=== PATIENT | female | born 1950 | race Asian ===

== ENCOUNTER 2017-02-18 20:45 | Emergency (ER) | payer SELFPAY ==
[2017-02-18] MEDS ORDERED: Acyclovir* 400 MG TAB PO ONE (21:26)
--- NOTE | 2017-02-18 21:32 | UC ---
Skin Complaint HPI - HPI Summary HPI Summary: Patient presents to the with erythematous slightly raised lesional rash to the midback, left side body, left area under the breast with aching and burning sensation. Denies pruritis. First noticed the lesions 2 days ago and has not gotten worse or better. She notes to some nerve pain down the left leg since noticing the rash. She has no allergies, no medications, no ETOH or drug use. She denies fever, sweats or chills, SCHNEIDER or other symptoms. - History of Current Complaint Chief Complaint: UCSkin Time Seen by Provider: 02/18/17 21:03 Stated Complaint: RASHES,ABD & LEG PAIN Hx Obtained From: Patient Hx Last Menstrual Period: menopause ?: No Onset/Duration: Sudden Onset Timing: Constant Onset Severity: Moderate Current Severity: Moderate Pain Intensity: 5 Pain Scale Used: 0-10 Numeric Location: Diffuse Character: Redness, Raised Aggravating: Nothing Alleviating: Nothing Associated Signs & Symptoms: Positive: Rash Related History: Possible Reaction to: Environmental Exposure - Allergy/Home Medications Allergies/Adverse Reactions: Allergies Allergy/AdvReac Type Severity Reaction Status Date / Time No Known Allergies Allergy Verified 02/18/17 21:12 Review of Systems Constitutional: Negative Skin: Rash Eyes: Negative Respiratory: Negative Cardiovascular: Negative Gastrointestinal: Negative Neurovascular: Negative Musculoskeletal: Negative Neurological: Negative All Other Systems Reviewed And Are Negative: Yes PMH/Surg Hx/FS Hx/Imm Hx Previously Healthy: Yes - Surgical History Surgical History: None - Social History Occupation: Unemployed Lives: With Family Alcohol Use: None Substance Use Type: None Smoking Status (MU): Never Smoked Tobacco Physical Exam Triage Information Reviewed: Yes Appearance: Well-Appearing, No Pain Distress, Well-Nourished Vital Signs Reviewed: Yes Eye Exam: Normal Eyes: Positive: Conjunctiva Clear Neck exam: Normal Neck: Positive: Supple, No Lymphadenopathy Respiratory Exam: Normal Respiratory: Positive: Chest non-tender, Lungs clear Cardiovascular Exam: Normal Cardiovascular: Positive: RRR Musculoskeletal Exam: Normal Musculoskeletal: Positive: Strength Intact Neurological Exam: Normal Neurological: Positive: Alert Skin Exam: Normal Course/Dx - Course Course Of Treatment: Through an data analyst etl developer, history and PE obtained. Raised erythematous confluent papules with small vesicles over the midback, left side body and abdomen in a dermatome pattern with nerve pain down the leg x 2 days. She is dx with shingles and given acyclovir 800mg in the UC. Valcyclovir 1g TID given x 7 days. She is to follow up with PCP. - Differential Diagnoses - Skin Complaint Differential Diagnoses: Poison Alejandra, Poison [place], Varicella Zoster - Diagnoses Provider Diagnoses: Varicella Zoster Discharge - Discharge Plan Condition: Stable Disposition: HOME Prescriptions: ValACYclovir (*) [Valtrex 1 GM(*)] 1 gm PO TID #21 tab MDD 3 Patient Education Materials: Shingles (ED) Additional Instructions: PREVENTING TRANSMISSION TO OTHERS Patients with herpes zoster can transmit varicella zoster virus (VZV) to individuals who have not had varicella and have not received the varicella vaccine. VZV is transmitted from person to person by direct contact or by aerosolization of virus from skin lesions. In general, VZV is much less transmissible from a person presenting with herpes zoster than from a person presenting with varicella. Patients with localized zoster are not infectious before vesicles appear and are no longer infectious when the lesions have re-epithelized. For those with active lesions, there are no specific precautions within the community setting. However, patients should be counseled about the risk of viral transmission to others. In addition, until the rash has crusted, patients should be advised to: Keep the rash covered, if feasible, and to wash their hands often to prevent the spread of virus to others. Avoid contact with women who have never had chickenpox or the varicella vaccine, premature or low weight infants, and immunocompromised individuals
[2017-02-18] MEDS ORDERED: Acyclovir* 200 MG CAP PO ONE (21:38)
[2017-02-18 21:49] VITALS: BP 113/58
== END 2017-02-18 21:52 | disposition home or self-care (01) ==
LOC: UCEAST 20:45
DX: B02.9 Zoster without complications (principal)
CPT/HCPCS: 99202; A9270-GY; G0463

== ENCOUNTER 2017-07-13 14:20 | Emergency (ER) | payer SELFPAY ==
[2017-07-13 14:42] VITALS: BP 107/60
--- NOTE | 2017-07-13 15:13 | ED ---
Skin Complaint - HPI Summary HPI Summary: 67 YO F WITH C/O RASH RIGHT CHIN FOR DAYS. ALSO HAS RIGHT SIDED NECK PAIN. THE RASH AND PAIN REMIND HER OF PRIOR SHINGLES. NO FEVERS, NO WEAKNESS, NUMBNESS, HEADACHE. - History of Current Complaint Chief Complaint: UCSkin Time Seen by Provider: 07/13/17 14:42 Stated Complaint: SKIN COMPLAINT Hx Last Menstrual Period: menopause - Allergy/Home Medications Allergies/Adverse Reactions: Allergies Allergy/AdvReac Type Severity Reaction Status Date / Time No Known Allergies Allergy Verified 07/13/17 14:32 PMH/Surg Hx/FS Hx/Imm Hx Previously Healthy: Yes - HAS HX SHINGLES Infectious Disease History: Yes Infectious Disease History: Reports: Hx Shingles - about three years;treated Denies: Traveled Outside the [place] in Last 30 Days - Social History Alcohol Use: None Substance Use Type: Reports: None Smoking Status (MU): Never Smoked Tobacco Review of Systems Constitutional: Negative Eyes: Negative ENT: Negative Cardiovascular: Negative Respiratory: Negative Gastrointestinal: Negative Genitourinary: Negative Musculoskeletal: Other - RT NECK PAIN Positive: Rash - RT CHIN ERYTHEMA, RAISED, 1 CM. Neurological: Negative Psychological: Normal All Other Systems Reviewed And Are Negative: Yes Physical Exam Triage Information Reviewed: Yes Vital Signs On Initial Exam: Initial Vitals Temp Pulse Resp BP Pulse Ox 98.9 F 72 18 107/60 97 07/13/17 14:33 07/13/17 14:33 07/13/17 14:33 07/13/17 14:33 07/13/17 14:33 Vital Signs Reviewed: Yes Appearance: Positive: Well-Appearing, No Pain Distress Skin: Positive: Warm, Other - RT CHIN RAISED ERYTHEMATOUS RASH. NO DRAINAGE. Head/Face: Positive: Other - SEE SKIN Eyes: Positive: Normal, EOMI, JUDE ENT: Positive: Normal ENT inspection, Pharynx normal. Negative: Pharyngeal erythema, Nasal congestion Neck: Positive: Supple, Tenderness @ - RT SIDE OF NECK Respiratory/Lung Sounds: Positive: Clear to Auscultation Cardiovascular: Positive: RRR Musculoskeletal: Positive: Normal, Strength/ROM Intact Neurological: Positive: Normal, Sensory/Motor Intact Psychiatric: Positive: Normal AVPU Assessment: Alert Diagnostics - Vital Signs Vital Signs Temp Pulse Resp BP Pulse Ox 07/13/17 14:33 98.9 F 72 18 107/60 97 - Laboratory Lab Statement: Any lab studies that have been ordered have been reviewed, and results considered in the medical decision making process. Course/Dx - Course Course Of Treatment: PROBABLE SHINGLES. RX VALACYCLOVIR. ALSO RX FOR ZOSTAVAX WHICH CAN BE GIVEN AFTER THE RASH IS GONE. F/U PMD; RETURN IF WORSE. - Diagnoses Provider Diagnoses: Shingles, Neck pain Discharge - Discharge Plan Condition: Stable Disposition: HOME Prescriptions: ValACYclovir (*) [Valtrex 1 GM(*)] 1 gm PO TID #21 tab Zoster Vaccine Live(NF) [Zostavax(NF)] 19,400 units SUBCUT ONCE #1 vial Patient Education Materials: Shingles (ED), Shingles Vaccine (ED), Neck Pain ( ED) Referrals: [facility] [place] PHYSICIAN REFERRAL [Outside] No Primary Care Phys,NOPCP [Primary Care Provider] - Additional Instructions: FOLLOW UP WITH YOUR DOCTOR. GET THE SHINGLES VACCINE AFTER YOUR RASH IS GONE. GET RECHECKED FOR ANY WORSENING OF YOUR CONDITION; FEVERS, YOU FEEL ILL OR QUESTIONS OR CONCERNS.
--- NOTE | 2017-07-15 11:48 | ED ---
Progress - Progress Note Progress Note: Spoke w/ Neeru, pharmacist from [facility], requesting change of zostavax live formula to shingrix recombinant formula for pt's future prevention of shingles recurrence, lessen severity, prevent PHN as she's has this viral outbreak 2 x now. Spoke w/ Dr. Kincaid who is okay with making this switch. Spoke w/ Neeru pharmacist at [facility] to confirm she is aware of change but also to notify her pt needs vaccine administered there as she does not have a PCP. She reports they will be able to take care of that for her. Also explained if she needs f/u vaccines in this series, may want to discuss her future options as she's from [place]. Unsure of her return but if this vaccine is not available in [place] and she will return there by time of 2nd vaccine, consider treating with vaccine taht may be a) completed here in the [facility] or b) a vaccine series that may be available to pt in [place] for completion of tx. Neeru agrees to review all options w/ pt. E-rx'd shingrix to [facility]. Course/Dx - Course Course Of Treatment: PROBABLE SHINGLES. RX VALACYCLOVIR. ALSO RX FOR ZOSTAVAX WHICH CAN BE GIVEN AFTER THE RASH IS GONE. F/U PMD; RETURN IF WORSE. - Diagnoses Provider Diagnoses: Shingles, Neck pain
== END 2017-07-13 15:20 | disposition home or self-care (01) ==
LOC: UCEAST 14:20
DX: B02.9 Zoster without complications (principal); M54.2 Cervicalgia
CPT/HCPCS: 99212; G0463

== ENCOUNTER 2018-08-07 08:15 | Emergency (ER) | payer SELFPAY ==
[2018-08-07 08:27] VITALS: BP 97/58
--- NOTE | 2018-08-07 10:00 | UC ---
FLU HPI - HPI Summary HPI Summary: 68 yo female presents accompanied by . provides the history and interprets as pt does not speak danish. He tells me that over the last 3-4 days pt has had a fever of around 101F with a dry cough. She has been taking keflex from [facility] for 3 days and today developed a rash on her abdomen and back. Has been taking ibuprofen for fever and discomfort with good relief. Today has not had a fever and feels improved. Denies sinus symptoms, sore throat , SOB, chest pain, n/v. - History of Current Complaint Chief Complaint: UCGeneralIllness Stated Complaint: COUGH,CONGESTION Time Seen by Provider: 08/07/18 09:57 Hx Obtained From: Family/[employer] Hx Last Menstrual Period: menopause Onset/Duration: Gradual Onset Severity Currently: Mild Severity Initially: Mild Pain Intensity: 3 Pain Scale Used: 0-10 Numeric - Allergy/Home Medications Allergies/Adverse Reactions: Allergies Allergy/AdvReac Type Severity Reaction Status Date / Time No Known Allergies Allergy Verified 08/07/18 08:27 PMH/Surg Hx/FS Hx/Imm Hx - Additional Past Medical History Additional PMH: None - Surgical History Surgical History: None - Family History Known Family History: Positive: None - Social History Lives: With Family Alcohol Use: None Substance Use Type: None Smoking Status (MU): Never Smoked Tobacco Review of Systems All Other Systems Reviewed And Are Negative: Yes Constitutional: Positive: Fever, Fatigue Skin: Positive: Negative Eyes: Positive: Negative ENT: Positive: Negative Respiratory: Positive: Cough Cardiovascular: Positive: Negative Gastrointestinal: Positive: Negative Neurovascular: Positive: Negative Neurological: Positive: Negative Psychological: Positive: Negative Physical Exam - Summary Physical Exam Summary: GENERAL: NAD. WDWN. No pain distress. SKIN: No rashes, sores, lesions, or open wounds. HEENT: Head: AT/NC Eyes: EOM intact. Conjunctiva clear without inflammation or discharge. Ears: Hearing grossly normal. TMs intact, no bulging, erythema, or edema. Nose: Nasal mucosa pink and moist. NTTP maxillary and frontal sinus. Throat: Posterior oropharynx without exudates, erythema, or tonsillar enlargement. Uvula midline. NECK: Supple. Nontender. No lymphadenopathy. CHEST: CTAB. No r/r/w. No accessory muscle use. Breathing comfortably and in no distress. CV: RRR. Without m/r/g. Pulses intact. Cap refill <2seconds NEURO: Alert. PSYCH: Age appropriate behavior. Triage Information Reviewed: Yes Vital Signs: Initial Vital Signs Temp 98.3 F 08/07/18 08:22 Pulse 66 08/07/18 08:22 Resp 16 08/07/18 08:22 BP 97/58 08/07/18 08:22 Pulse Ox 97 08/07/18 08:22 Laboratory Tests 08/07/18 10:07 Influenza A (Rapid) Positive A Vital Signs Reviewed: Yes Flu Course/Dx - Course Course Of Treatment: POC flu positive. Dicussed role of tamiflu and unlikely to provide much benefit >72hours. Pt is feeling improved today. would like an rx for tamiflu anyway. Advised to rest and drink plenty of clear fluids. Continue ibuprofen for fever/discomfort. - Differential Dx/Diagnosis Provider Diagnosis: Influenza Discharge - Sign-Out/Discharge Documenting (check all that apply): Patient Departure All imaging exams completed and their final reports reviewed: No Studies - Discharge Plan Condition: Stable Disposition: HOME Prescriptions: Oseltamivir CAP* [Tamiflu CAP*] 75 mg PO BID #10 cap Patient Education Materials: Influenza (DC) Referrals: No Primary Care Phys,NOPCP [Primary Care Provider] - Additional Instructions: If you develop a fever, shortness of breath, chest pain, new or worsening symptoms - please call your PCP or go to the ED. - Billing Disposition and Condition Condition: STABLE Disposition: Home
[2018-08-07 10:12] LABS: Influenza A Molecular POSITIVE (Negative)
== END 2018-08-07 10:28 | disposition home or self-care (01) ==
LOC: UCEAST 08:15
DX: J11.1 Influenza due to unidentified influenza virus with other respiratory manifestations (principal); R21 Rash and other nonspecific skin eruption
CPT/HCPCS: 99212; G0463